=== PATIENT | male | born 1990 | race Caucasian/White ===

== ENCOUNTER 2021-06-23 15:12 | Emergency (ER) | payer MEDICAID ==
[~2021-06-23] VITALS: Ht 172.7 cm; Wt 72.6 kg
--- NOTE | 2021-06-23 15:15 | NUR ---
Pt was triaged and seen by on EMS gurney. There are no ER beds or gurneys available so the pt was placed in a w/c and is currently in the hallway because there are no open ER beds.
--- NOTE | 2021-06-23 15:26 | NUR ---
Pt placed on a gurney and placed in room 5B.
[2021-06-23] MEDS ORDERED: ONDANSETRON 4 MG/2 ML VIAL IV ONE (15:30)
[2021-06-23] MEDS ORDERED: IV NORMAL SALINE 1000 ML BAG IV ONE (15:30)
[2021-06-23 15:45] LABS: HEMATOCRIT 44.9 % (36.7-47.1); MEAN CORPUSCULAR HEMOGLOBIN 30.1 uug (23.8-33.4); MEAN CORPUSCULAR VOLUME 87.5 fL (73.0-96.2); PLATELET COUNT (AUTO) 295 K/uL (152-348)
[2021-06-23 15:54] LABS: CREATININE 1.2 mg/dL (0.6-1.3); POTASSIUM 3.1 mmol/L (3.5-5.1)
[2021-06-23 16:00] LABS: BILIRUBIN,DIRECT 0.1 mg/dL (0.0-0.2); BILIRUBIN,TOTAL 0.4 mg/dL (0.2-1.0)
[2021-06-23] MEDS ORDERED: POTASSIUM CHLORIDE 20 MEQ TAB.PRT.SR PO ONE (16:00)
[2021-06-23] MEDS ORDERED: ONDANSETRON 4 MG/2 ML VIAL ONE (16:13)
[2021-06-23] MEDS ORDERED: POTASSIUM CHLORIDE 20 MEQ TAB.PRT.SR ONE (16:14)
[2021-06-23 16:42] LABS: ETHANOL < 3 MG/DL (0-0)
--- NOTE | 2021-06-23 17:30 | NUR ---
Pt is resting in gurney with eyes closed and no s/s of distress noted. Pt denies any nausea or pain at this time. Second 1000ml NS bolus started per order. VS: BP 111/67, HR 107, RR 17, Pulse ox 98% (RA).
[2021-06-23] MEDS ORDERED: POTA10CA43 PO (18:12)
--- NOTE | 2021-06-23 18:35 | NUR ---
IV removed. Catheter intact and site benign. Pressure and 4x4 gauze applied to site. No bleeding noted.
[2021-06-23 18:38] VITALS: BP 114/67
--- NOTE | 2021-06-23 18:38 | NUR ---
Patient discharged to home in stable condition. Written and verbal after care instructions given. Patient verbalizes understanding of instructions. Stressed follow up or return to ER for worsening s/s.
== END 2021-06-23 18:39 | disposition home or self-care (01) ==
LOC: ER 15:12
DX: F12.929 Cannabis use, unspecified with intoxication, unspecified (principal); E87.6 Hypokalemia; Z79.899 Other long term (current) drug therapy
CPT/HCPCS: 36415; 80048; 80076; 80320; 83690; 85025; 93005; 96372; 96374; 99284; J2405; A4663; G0480; J7030